=== PATIENT | male | born 1950 | race Caucasian/White ===

== ENCOUNTER 2016-08-31 08:31 | Day surgery (SDC) | payer BC ==
[~2016-08-31] VITALS: Ht 188 cm; Wt 104.6 kg
[~2016-08-31 08:31] MED LIST: ACET325T PO; ASPI81TA81 PO; FLUD.1 PO; LOPE2TAB PO; METF500T PO; METO-309 PO; PANT40TA3 PO; POTA-243 PO
[2016-08-31 08:59] VITALS: BP 107/82; PULSE 75; RESP 20; TEMP 98.4; O2SAT 98
[2016-08-31] MEDS ORDERED: SODIUM CHLOR 0.9% 1000 ML IV SCH (09:00)
[2016-08-31] MEDS ORDERED: OMEP40CA2 PO (09:21)
[2016-08-31] MEDS ORDERED: ATEN50TA PO (09:21)
[2016-08-31 09:26] LABS: AUTOMATED NEUTROPHIL # 2.3 TH/MM3 (1.8-7.7); BASOPHIL # 0.1 TH/MM3 (0-0.2); BASOPHIL % 1.3 % (0.0-2.0); EOSINOPHIL # 0.3 TH/MM3 (0-0.4); HEMATOCRIT 44.1 % (39.0-51.0); HEMO FLAGS DIFF FINAL; LYMPH % 31.4 % (9.0-44.0); LYMPHOCYTE # 1.4 TH/MM3 (1.0-4.8); MEAN CELL VOLUME 85.3 FL (80.0-100.0); MEAN CORPUSCULAR HEMOGLOBIN 29.3 PG (27.0-34.0); MEAN CORPUSCULAR HGB CONC 34.4 % (32.0-36.0); MONO % 8.6 % (0.0-8.0); NEUT % 52.7 % (16.0-70.0); PLATELET COUNT 132 TH/MM3 (150-450); RED BLOOD COUNT 5.17 MIL/MM3 (4.50-5.90); RED CELL DISTRIBUTION WIDTH 16.4 % (11.6-17.2); WHITE BLOOD COUNT 4.4 TH/MM3 (4.0-11.0)
[2016-08-31] MEDS ORDERED: fentaNYL CITRATE 250 MCG/5 ML AMP ONE (09:46)
[2016-08-31] MEDS ORDERED: MIDAZOLAM HCL 5 MG/5 ML VIAL ONE (09:46)
[2016-08-31] MEDS ORDERED: LIDOCAINE 1%/EPINEPHrine 1:100,000 SOLN 20 ML VIAL ONE (11:13)
[2016-08-31 12:25] VITALS: BP 105/63; PULSE 62; RESP 16; TEMP 98.2; O2SAT 96
[2016-08-31 12:37] LABS: BONE MARROW PROCESSING COMPLETE; IRON STAIN DONE; JENNER GIEMSA STAIN DONE
[2016-08-31 12:40] VITALS: BP 101/69; PULSE 53; RESP 16; O2SAT 94
[2016-08-31] MEDS ORDERED: oxyCODONE/ACETAMINOPHEN 5 MG/325 MG TAB PO PRN (12:45)
[2016-08-31 13:10] VITALS: BP 118/64; PULSE 58; RESP 18; O2SAT 97
[2016-08-31 13:40] VITALS: BP 104/55; PULSE 59; RESP 18; O2SAT 98
[2016-08-31 14:10] VITALS: BP 111/71; PULSE 66; RESP 16; O2SAT 94
--- NOTE | 2016-08-31 15:16 | RADRPT ---
EXAM DATE/TIME: 08/31/2016 11:28 [place] COMPARISON: No previous studies available for comparison. INDICATIONS : Leukemia. SEDATION TIME: 50 minutes BIOPSY SITE: Right MEDICATION(S): 1.) 4.5 mg midazolam (Versed) IV 2.) 250 mcg fentanyl (Sublimaze) IV DEVICE(S): 1.) 11 gauge Bone marrow biopsy needle MEDICAL HISTORY : Hypertension. Diabetes mellitus type 2. SURGICAL HISTORY : None. ENCOUNTER: Initial ACUITY: 1 day PAIN SCORE: 0/10 LOCATION: Right pelvis A total of one core specimen(s) were obtained and sent to the laboratory for pathologic evaluation. PROCEDURE: 1. CT guided bone marrow biopsy. 2. Conscious sedation with continuous EKG and oximetry monitoring. 3. EKG and oximetry remained stable throughout the procedure. Prior to the procedure informed consent was obtained. Any appropriate prior imaging studies were rev iewed. Using automated exposure control and adjustment of the mA and/or kV according to patient size , radiation dose was kept as low as reasonably achievable to obtain optimal diagnostic quality images . The site was prepped in a sterile fashion. Full sterile technique was used, including cap, mask, ya rile gloves and gown and a large sterile sheet. Hand hygiene and 2% chlorhexidine and/or betadine/al cohol prep was utilized per protocol for cutaneous antisepsis. The skin and subcutaneous tissues wer e infiltrated with local anesthetic solution. With CT guidance the previously identified target was localized. Biopsy was performed using the presc ribed needle as above. Following biopsy marrow aspiration was performed with repeat puncture. [place]qua te hemostasis was obtained with compression at the puncture site. Follow-up CT scan reveals no hemorrhage. Conscious sedation was performed with the prescribed dosages and duration as above in the presence of an independent trained radiology nurse to assist in the monitoring of the patient. EKG and oximetry remained stable throughout the procedure. The patient tolerated the procedure well and there were no complications. The patient was sent to Radiology Outpatient Unit in stable condition. CONCLUSION: 1. Uncomplicated CT guided bone marrow aspirate. 2. Uncomplicated CT guided bone marrow biopsy. Luis Bravo MD on August 31, 2016 at 15:14 Board Certified Radiologist. This report was verified electronically.
== END 2016-08-31 14:20 | disposition home or self-care (01) ==
LOC: HRAD 08:31 → HRIP 08:33 → HRAD 14:20
PROVIDERS: ATTEND Internal Medicine Hematology & Oncology
DX: D69.6 Thrombocytopenia, unspecified (principal); C92.Z0 Other myeloid leukemia not having achieved remission; I10 Essential (primary) hypertension; E11.9 Type 2 diabetes mellitus without complications; I69.354 Hemiplegia and hemiparesis following cerebral infarction affecting left non-dominant side; E78.5 Hyperlipidemia, unspecified; Z87.01 Personal history of pneumonia (recurrent)
CPT/HCPCS: 38221; 77012; 85025; 85097; 88305; 88311; 88313; 99153; C1830; G0364; J2250; J3010